=== PATIENT | female | born 1975 | race Caucasian/White ===

== ENCOUNTER 2016-07-02 18:52 | Emergency (ER) ==
[2016-07-02 19:04] VITALS: BP 147/106; TEMP 97.6; BMI 33.6
[2016-07-02] MEDS ORDERED: NORCO 7.5-325 PO STA (19:21)
[2016-07-02] MEDS ORDERED: BENADRYL PO STA (19:22)
--- NOTE | 2016-07-02 19:25 | ED.PDOC ---
General ED Provider: Dr. DIANA JOHNSON-ER Chief Complaint: Fall Stated Complaint: i fell on my elbow --it still hurts Time Seen by Physician: 19:00 Mode of Arrival: Walk-In Information Source: Patient, Family Exam Limitations: No limitations Primary Care Provider: CHELSIE HENSLEY Nursing and Triage Documentation Reviewed and Agree: Yes Musculoskeletal Complaint Exam - Elbow Pain Complaint/Exam Mechanism of Injury: Reports: Trauma Onset/Duration: 12hrsd Symptoms Are: Still present Onset of Pain: Reports: Immediate Initial Severity: Mild Current Severity: Moderate Location: Reports: Discrete Character: Reports: Dull, Aching Alleviating: Reports: None Aggravating: Reports: Movement, Twisting, Pulling Associated Signs and Symptoms: Denies: Swelling, Redness, Bruising, Fever, Weakness, Numbness, Tingling Related Surgical History: Reports: None Tenderness: Present: Medial Condyle Limited Range of Motion: Present: Flexion, Extension, Pronation, Supination Differential Diagnoses: Closed Fracture, Sprain, Strain Review of Systems - Review Of Systems Constitutional: Reports: No symptoms Eyes: Reports: No symptoms Ears, Nose, Mouth, Throat: Reports: No symptoms Respiratory: Reports: No symptoms Cardiac: Reports: No symptoms GI: Reports: No symptoms : Reports: No symptoms Musculoskeletal: Reports: Joint pain, Muscle pain Skin: Reports: No symptoms Neurological: Reports: No symptoms Endocrine: Reports: No symptoms Hematologic/Lymphatic: Reports: No symptoms All Other Systems: Reviewed and Negative Past Medical History - Past Medical History Previously Healthy: No Endocrine: Reports: None Cardiovascular: Reports: None Respiratory: Reports: Other (sleep apnea) Hematological: Reports: None Gastrointestinal: Reports: None Genitourinary: Reports: None Neuro/Psych: Reports: None Musculoskeletal: Reports: Arthritis, Back Pain Cancer: Reports: None Last Menstrual Period: 2009 PT HAS HAD A HYSTERCTOMY - Surgical History General Surgical History: Reports: Hysterectomy, Cholecystectomy - Family History Family History: Reports: None - Social History Smoking Status: Never smoker Hx Substance Use: No Alcohol Screening: Occasionally - Immunizations Tetanus Shot up to Date: No Physical Exam - Physical Exam Appearance: Well-appearing, No pain distress, Well-nourished Pain Distress: Moderate Eyes: AUBREY, EOMI, Conjunctiva clear ENT: Ears normal, Nose normal, Oropharynx normal Neck: Supple Respiratory: Airway patent, Breath sounds clear, Breath sounds equal, Respirations nonlabored Cardiovascular: RRR, Pulses normal, No rub, No murmur GI/: Soft, Nontender, No masses, Bowel sounds normal, No Organomegaly Musculoskeletal: Limited ROM Skin: Warm, Dry, Normal color Neurological: Sensation intact, Motor intact, Reflexes intact, Cranial nerves intact, Alert, Oriented Psychiatric: Affect appropriate, Mood appropriate Interpretation - Radiology Interpretation Radiology Interpretation By: ED Physician Radiology Results: Negative Procedures - Splinting Location: elbow right Pre-Made Type: Metal Splint: Gutter splint Pre-Proc Neuro Vasc Exam: Normal Post-Proc Neuro Vasc Exam: Normal Critical Care Note - Critical Care Note Total Time (mins): 0 Course - Course Orders, Labs, Meds: Orders Category Date Time Status Splint [ED SPLINT APPLICATION] .ONCE EMERGENCY 07/02/16 19:21 Active Diphenhydramine HCl [Benadryl] MEDS 07/02/16 19:22 Discontinued 25 mg PO ONCE STA Hydrocodone Bit/Acetaminophen [[place] 7.5-325] MEDS 07/02/16 19:21 Discontinued 1 tab PO ONCE STA ELBOW, RIGHT MIN 3 VIEWS Stat RADS 07/02/16 19:05 Taken Medications Discontinued Medications Generic Name Dose Route Start Last Admin Trade Name Freq PRN Reason Stop Dose Admin Acetaminophen/Hydrocodone Bitart 1 tab 07/02/16 19:21 [place] 7.5-325 PO 07/02/16 19:22 ONCE STA Diphenhydramine HCl 25 mg 07/02/16 19:22 Benadryl PO 07/02/16 19:23 ONCE STA Vital Signs: Temp Pulse Resp BP Pulse Ox 07/02/16 18:53 97.6 F 97 H 18 147/106 H 98 Departure - Departure Time of Disposition: 19:25 Disposition: HOME SELF-CARE Discharge Problem: Elbow pain Qualifiers: Laterality: right Qualifier Code: (M25.521) Pain in right elbow Instructions: Elbow Sprain (ED) Condition: Good Pt referred to PMD for follow-up: Yes Additional Instructions: stay in splint==norco 5mg q 4hrs prn pain #12--f/u wtih dr hensley--consider ortho referral or walk in ortho clinic Allergies/Adverse Reactions: Allergies morphine Allergy (Unknown, Verified 07/02/16 18:58) Hives amoxicillin trihydrate [From Augmentin] Adverse Reaction (Verified 07/02/16 18: 58) potassium clavulanate [From Augmentin] Adverse Reaction (Verified 07/02/16 18:58 ) Home Medications: Ambulatory Orders Buspirone HCl 15 mg PO BID 07/07/13 Clonazepam 0.5 mg PO QID 07/07/13 Biotin [Berny Biotin] 10,000 mcg PO DAILY 10/19/13 Pregabalin [Lyrica] 300 mg PO BID 10/19/13 Ca Cmb No.1/Vit D3/B-6/FA/B12 [Vitamin D3 1,000 Unit Tablet] 1 each PO DAILY Multivitamin 1 cap PO DAILY 04/05/14 Quetiapine Fumarate [Seroquel] 200 mg PO DAILY 09/06/14 Meloxicam 15 mg PO DAILY 03/29/16 Methocarbamol [Robaxin] 500 mg PO TID PRN 03/29/16 Sumatriptan Succinate [Imitrex] 25 mg PO DIRECTED PRN 03/29/16 Prazosin HCl 1 mg PO BEDTIME 07/02/16 Disposition Discussed With: Patient, Family
--- NOTE | 2016-07-03 01:36 | DI ---
Exam: Right elbow three views HISTORY: Elbow injury and pain Findings / impression: No significant bony or articular abnormality. Negative exam.
== END 2016-07-02 20:02 | disposition home or self-care (01) ==
LOC: ED 18:52
DX: M25.521 Pain in right elbow (principal); W19.XXXA Unspecified fall, initial encounter
CPT/HCPCS: 99283

== ENCOUNTER 2016-07-10 13:38 | Outpatient (CLI) ==
--- NOTE | 2016-07-11 08:28 | MRI ---
EXAM: MRI of the right elbow without contrast COMPARISON: Right elbow radiographs 07/02/2016. HISTORY: Elbow injury with pain. TECHNIQUE: Multiplanar noncontrast MR images of the right elbow were acquired using a 1.2 Ligia mag net. The patient was unable to fully extend the arm for imaging. Numerous sequences were repeated due to patient motion artifact and the technologist performing the study notes the best possible octavio lity images were obtained given the patient's condition. FINDINGS: There is no evidence of an acute fracture, osteomyelitis or a focal marrow lesion. Joint spaces are preserved. Moderate sized joint effusion with mild synovial thickening, nonspecific. N o definite osteochondral body. There is subcutaneous edema most pronounced posteriorly and medially without a focal soft tissue ulc er or drainable subcutaneous fluid collection. There is moderate common extensor tendinosis with pa rtial tearing of the deep insertional fibers at the lateral epicondyle attachment without a full-thi ckness tear. There is thinning of the underlying radial collateral ligament related to at least a p artial tear though a full-thickness tear cannot be excluded on this non arthrographic study. T2 hyperintense signal along the ulnar collateral ligament with thinning ligament fibers related to a sprain/partial tear without a definite full-thickness tear on this non arthrographic study. Commo n flexor tendon is intact in its medial epicondyle attachment. The ulnar nerve is noted within the cubital tunnel and is grossly unremarkable. The distal triceps, biceps and brachialis tendons are intact without a full-thickness tendon tear. IMPRESSION: 1. No acute osseous injury. 2. Moderate joint effusion with synovitis, nonspecific. Consider aspiration if clinically warrante d. 3. Lateral epicondylitis with tendinosis and partial tear of the common extensor tendon at its late ral epicondyle attachment. 4. Suspected tear of the radial collateral ligament with partial thickness and possible full-thickn ess components. Sprain/partial tear of the ulnar collateral ligament. MR arthrography could be con sidered if clinically warranted. 5. Subcutaneous edema posteriorly and medially without a drainable fluid collection.
== END 2016-07-10 13:39 | disposition home or self-care (01) ==
LOC: RAD 13:38
PROVIDERS: ATTEND Family Medicine
DX: M25.521 Pain in right elbow (principal)

== ENCOUNTER 2016-08-12 22:31 | Emergency (ER) ==
[2016-08-12 22:43] VITALS: BP 133/88; TEMP 98.5; BMI 33.7
[2016-08-12] MEDS ORDERED: DECADRON 4 MG/ML SDV IM STA (22:54)
[2016-08-12] MEDS ORDERED: DEMEROL 100 MG/ML SYRINGE IM STA (22:54)
[2016-08-12] MEDS ORDERED: NORFLEX IM STA (22:54)
--- NOTE | 2016-08-12 22:58 | ED.PDOC ---
General ED Provider: Dr. 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 no bladder function lost. sensations intact. Time Seen by Physician: 22:55 Mode of Arrival: Wheelchair Information Source: Patient Primary Care Provider: CHELSIE STOCK Nursing and Triage Documentation Reviewed and Agree: Yes Musculoskeletal Complaint Exam - Back Pain Complaint/Exam Mechanism of Injury: Reports: No known trauma Symptoms Are: Still present Timing: Constant Episodes Lasting: Days Initial Severity: Moderate Current Severity: Severe Location: Reports: Radiating Character: Reports: Aching, Throbbing Aggravating: Reports: Movements, Bending, Cough Alleviating: Reports: None Associated Signs and Symptoms: Reports: Pain with weight bearing. Denies: Swelling, Redness, Bruising, Fever, Weakness, Numbness, Tingling, Abdominal pain , Flank pain, Bladder incontinence, Bowel incontinence, Weight loss TAD Risk Factors: Reports: None AAA Risk Factors: Reports: None Cauda Equina Risk Factors: Reports: None Epidural Abcess Risk Factors: Reports: None Related Surgical History: Reports: None Focal Tenderness: Yes Paraspinal Muscle Tenderness: Yes Paraspinal Muscle Spasm: Yes Scoliosis: No Lordosis: No Kyphosis: No SLR Test: Left Positive Focal Weakness: Present: None Focal Sensory Loss: Present: None Gait: Present: Unable Differential Diagnoses: Herniated Disk, Strain, Sprain Review of Systems - Review Of Systems Constitutional: Reports: No symptoms Eyes: Reports: No symptoms Ears, Nose, Mouth, Throat: Reports: No symptoms Respiratory: Reports: No symptoms Cardiac: Reports: No symptoms GI: Reports: No symptoms : Reports: No symptoms Musculoskeletal: Reports: Back pain, Muscle stiffness Skin: Reports: No symptoms Neurological: Reports: No symptoms Endocrine: Reports: No symptoms Hematologic/Lymphatic: Reports: No symptoms All Other Systems: Reviewed and Negative Past Medical History - Past Medical History Previously Healthy: No Endocrine: Reports: None Cardiovascular: Reports: None Respiratory: Reports: Other (sleep apnea) Hematological: Reports: None Gastrointestinal: Reports: None Genitourinary: Reports: None Neuro/Psych: Reports: None Musculoskeletal: Reports: Arthritis, Back Pain Cancer: Reports: None Last Menstrual Period: PT HAS HAD A HYSTERECTOMY - Surgical History General Surgical History: Reports: Hysterectomy, Cholecystectomy - Family History Family History: Reports: None - Social History Smoking Status: Never smoker Hx Substance Use: No Alcohol Screening: None - Immunizations Tetanus Shot up to Date: Yes Physical Exam - Physical Exam Appearance: Obese Pain Distress: Moderate Eyes: AUBREY, EOMI, Conjunctiva clear ENT: Ears normal, Nose normal, Oropharynx normal Respiratory: Airway patent, Breath sounds clear, Breath sounds equal, Respirations nonlabored Cardiovascular: RRR, Pulses normal, No rub, No murmur GI/: Soft, Nontender, No masses, Bowel sounds normal, No Organomegaly Musculoskeletal: Normal strength, ROM intact, No edema, No calf tenderness Skin: Warm, Dry, Normal color Neurological: Sensation intact, Motor intact, Reflexes intact, Cranial nerves intact, Alert, Oriented Psychiatric: Affect appropriate, Mood appropriate Interpretation - Radiology Interpretation Radiology Interpretation By: Radiologist Radiology Results: Negative Exam Interpreted: CT Scan Critical Care Note - Critical Care Note Total Time (mins): 0 Course - Course Orders, Labs, Meds: Orders Category Date Time Status Dexamethasone 4 mg/ml Inj [Decadron 4 mg/ml Sdv] MEDS 08/12/16 22:54 Discontinued 4 mg IM ONCE STA Meperidine HCl/Pf [Demerol 100 mg/ml Syringe] MEDS 08/12/16 22:54 Discontinued 25 mg IM ONCE STA Orphenadrine Citrate [Norflex] MEDS 08/12/16 22:54 Discontinued 60 mg IM ONCE STA CT LUMBAR SPINE W/O CONTRAST Stat RADS 08/12/16 22:54 Completed Medications Discontinued Medications Generic Name Dose Route Start Last Admin Trade Name Freq PRN Reason Stop Dose Admin Dexamethasone Sodium Phosphate 4 mg 08/12/16 22:54 Decadron 4 Mg/Ml Sdv IM 08/12/16 22:55 ONCE STA Meperidine HCl 25 mg 08/12/16 22:54 Demerol 100 Mg/Ml Syringe IM 08/12/16 22:55 ONCE STA Orphenadrine Citrate 60 mg 08/12/16 22:54 Norflex IM 08/12/16 22:55 ONCE STA Vital Signs: Temp Pulse Resp BP Pulse Ox 08/12/16 22:33 98.5 F 86 20 133/88 100 Departure - Departure Time of Disposition: 23:35 Disposition: HOME SELF-CARE Discharge Problem: Lumbar back pain Qualifiers: Chronicity: acute Back pain laterality: bilateral Sciatica presence: with sciatica Sciatica laterality: sciatica of left side Qualifier Code: (M54.42) Lumbago with sciatica, left side Instructions: Lumbar Radiculopathy (ED) Condition: Stable Pt referred to PMD for follow-up: Yes Additional Instructions: hot pack, rest gradual exercise if not better needs MRI Prescriptions: Hydrocodone Bit/Acetaminophen [[place] 7.5-325] 1 each PO Q8H #14 tablet Allergies/Adverse Reactions: Allergies morphine Allergy (Unknown, Verified 08/12/16 22:43) Hives amoxicillin trihydrate [From Augmentin] Adverse Reaction (Verified 08/12/16 22: 43) potassium clavulanate [From Augmentin] Adverse Reaction (Verified 08/12/16 22:43 ) Home Medications: Ambulatory Orders Buspirone HCl 15 mg PO BID 07/07/13 Biotin [Berny Biotin] 10,000 mcg PO DAILY 10/19/13 Pregabalin [Lyrica] 300 mg PO BID 10/19/13 Ca Cmb No.1/Vit D3/B-6/FA/B12 [Vitamin D3 1,000 Unit Tablet] 1 each PO DAILY Multivitamin 1 cap PO DAILY 04/05/14 Quetiapine Fumarate [Seroquel] 400 mg PO DAILY 09/06/14 Meloxicam 15 mg PO DAILY 03/29/16 Methocarbamol [Robaxin] 500 mg PO TID PRN 03/29/16 Sumatriptan Succinate [Imitrex] 25 mg PO DIRECTED PRN 03/29/16 Prazosin HCl 1 mg PO BEDTIME 07/02/16 Fluoxetine HCl [Prozac] 20 mg PO DAILY 08/12/16 Hydrocodone Bit/Acetaminophen [[place] 7.5-325] 1 each PO Q8H #14 tablet 08/12/16 [place] Carbonate 300 mg PO DAILY 08/12/16 Disposition Discussed With: Patient
--- NOTE | 2016-08-12 23:25 | CT ---
EXAM: CT lumbar spine without intravenous contrast 08/12/2016. Sagittal and coronal reformatted im ages obtained HISTORY: Lumbar radiculopathy COMPARISON: 03/29/2016 FINDINGS: Normal lumbar lordosis is maintained. Vertebral bodies appear intact without evidence of fracture. The facet joints align normally. The spinal canal appears widely patent at T12-L3. Small posterior disc bulge flattens the thecal sa c at L3-L4, L4-L5 and L5-S1. The neural foramen appear patent. IMPRESSION: Mild degenerative disc disease. No definitive spinal or neural foraminal stenosis. No acute osseous abnormality.
== END 2016-08-13 00:11 | disposition home or self-care (01) ==
LOC: ED 22:31
DX: M54.42 Lumbago with sciatica, left side (principal)
CPT/HCPCS: 96372; 99282

== ENCOUNTER 2016-08-17 09:07 | Outpatient (CLI) ==
--- NOTE | 2016-08-17 10:33 | MRI ---
EXAM: MRI lumbar spine without IV contrast. DATE: 08/17/2016. HISTORY: Lumbar back pain radiating into the left lower extremity. TECHNIQUE: Sagittal and axial T1W and T2W sequences of the lumbar spine along with sagittal IR and coronal T2W sequences were obtained using 1.2 Ligia magnet. No IV contrast. COMPARISON: MRI L-spine 07/15/2013. CT L-spine 08/12/2016. FINDINGS: There are five [id number] lumbar vertebra. Mild hyperlordosis of the lumbar spine i s evident at L5-S1. Minor leftward curvature of the lumbar spine is present with the apex of curvat ure at L4-5. A 2.8 mm anterolisthesis of L5 relative to L4 is observed. No other subluxation, acute fracture, osseous malignancy, or pars interarticularis defect is demonstrated. Lumbar vertebrae no rmal in height. Chronic, small Schmorl's node is detected at the T11 superior endplate. There is d isc desiccation at L3-4, L4-5, and L5-S1. No sacral fracture or stress reaction is evident. Conus m edullaris terminates at L1-2. Visible spinal cord is normal. No retroperitoneal lymphadenopathy, paraspinal mass, or aortic aneurysm is detected. Paraspinal mus culature is symmetric bilaterally. Visible portions of the liver, spleen, adrenal glands and kidney s are normal. No bowel obstruction or neoplasm is identified. Segmental analysis: T12-L1: Normal. L1-2: Normal L2-3: Normal. L3-4: Minimal posterior to left foraminal disc bulge does not cause significant foraminal stenosis or central canal stenosis. L4-5: Minor anterior subluxation of L5, minor concentric disc bulge, posterior midline disc protrus ion (2.8 mm AP x 10 mm transverse) and minor facet disease cause slight narrowing at the opening to each foramen. No central canal stenosis. L5-S1: Minor posterior disc bulge does not cause S1 nerve root compression, central stenosis or for aminal stenosis. IMPRESSIONS: 1. Lumbar spine minimal DDD, minor subluxation of L4-5, and minor facet disease. 2. Minor bilateral foraminal encroachment at L4-5. No nerve compression. 3. No lumbar spine central canal stenosis.
== END 2016-08-17 09:08 | disposition home or self-care (01) ==
LOC: RAD 09:07
PROVIDERS: ATTEND Family Medicine
DX: M54.9 Dorsalgia, unspecified (principal)

== ENCOUNTER 2017-07-10 20:38 | Emergency (ER) ==
[2017-07-10 20:41] VITALS: BP 138/97; TEMP 97.3
[2017-07-10 20:45] VITALS: BMI 33.5
[2017-07-10] MEDS ORDERED: TORADOL IM STA (20:46)
--- NOTE | 2017-07-10 20:54 | ED.PDOC ---
General ED Provider: Dr. MARIZA MONGE Chief Complaint: Hip Pain/Injury Stated Complaint: Been having left hip pain for couple days, gradually getting worse, and today hurts to walk and stand Time Seen by Physician: 20:52 Mode of Arrival: Walk-In Information Source: Patient Primary Care Provider: CHELSIE STOCK Nursing and Triage Documentation Reviewed and Agree: Yes Reviewed sepsis parameters & appropriate labs ordered?: No System Inflammatory Response Syndrome: Not Applicable Sepsis Protocol: For patient's 13 years and over: Temp is 96.8 and below OR 101 and greater Pulse >90 BPM Resp >20/minute Acutely Altered Mental Status Are patient's symptoms suggestive of a new infection, such as: -Pneumonia -Skin, Soft Tissue -Endocarditis -UTI -Bone, Joint Infection -Implantable Device -Acute Abdominal Infection -Wound Infection -Meningitis -Blood Stream Catheter Infection -Unknown Musculoskeletal Complaint Exam - Hip/Pelvis Complaint/Exam Location of Pain: Reports: Left Mechanism of Injury: Reports: No known trauma Symptoms Are: Still present Initial Severity: Moderate Current Severity: Moderate Location: Reports: Discrete Character: Reports: Aching, Throbbing Aggravating: Reports: Movement, Weight bearing Alleviating: Reports: None Associated Signs and Symptoms: Denies: Swelling, Redness, Bruising, Fever, Weakness, Dizziness, Syncope, Abdominal pain, Knee pain Able to Bear Weight: No Septic Arthritis Risk Factors: Reports: None Related Surgical History: Reports: None Pelvis Palpation: Stable Tenderness: Present: Left Range of Motion Limited In: Present: Flexion, Extension Differential Diagnoses: Fracture, Sprain Review of Systems - Review Of Systems Constitutional: Reports: No symptoms Eyes: Reports: No symptoms Ears, Nose, Mouth, Throat: Reports: No symptoms Respiratory: Reports: No symptoms Cardiac: Reports: No symptoms GI: Reports: No symptoms : Reports: No symptoms Musculoskeletal: Reports: No symptoms Skin: Reports: No symptoms Neurological: Reports: No symptoms Endocrine: Reports: No symptoms Hematologic/Lymphatic: Reports: No symptoms All Other Systems: Reviewed and Negative Past Medical History - Past Medical History Previously Healthy: No Endocrine: Reports: None Cardiovascular: Reports: None Respiratory: Reports: Other (sleep apnea) Hematological: Reports: None Gastrointestinal: Reports: None Genitourinary: Reports: None Neuro/Psych: Reports: None Musculoskeletal: Reports: Arthritis, Back Pain Cancer: Reports: None Last Menstrual Period: n/a - Surgical History General Surgical History: Reports: Hysterectomy, Cholecystectomy - Family History Family History: Reports: None - Social History Smoking Status: Never smoker Hx Substance Use: No Alcohol Screening: None Physical Exam - Physical Exam Appearance: Ill-appearing Pain Distress: Moderate Eyes: AUBREY, EOMI, Conjunctiva clear ENT: Ears normal, Nose normal, Oropharynx normal Respiratory: Airway patent, Breath sounds clear, Breath sounds equal, Respirations nonlabored Cardiovascular: RRR, Pulses normal, No rub, No murmur GI/: Soft, Nontender, No masses, Bowel sounds normal, No Organomegaly Musculoskeletal: No edema, No calf tenderness, Limited ROM, Limited strength Skin: Warm, Dry, Normal color Neurological: Sensation intact, Motor intact, Reflexes intact, Cranial nerves intact, Alert, Oriented Psychiatric: Affect appropriate, Mood appropriate Interpretation - Radiology Interpretation Radiology Interpretation By: ED Physician Radiology Results: Negative Critical Care Note - Critical Care Note Total Time (mins): 25 Course - Course Orders, Labs, Meds: Orders Category Date Time Status Ketorolac Tromethamine [Toradol] MEDS 07/10/17 20:46 Stat 30 mg IM ONCE STA HIP, LEFT 2 VIEWS Stat RADS 07/10/17 20:46 Ordered Medications Discontinued Medications Generic Name Dose Route Start Last Admin Trade Name Freq PRN Reason Stop Dose Admin Ketorolac Tromethamine 30 mg 07/10/17 20:46 Toradol IM 07/10/17 20:47 ONCE STA Vital Signs: Temp Pulse Resp BP Pulse Ox 07/10/17 20:39 97.3 F L 74 16 138/97 H 99 Departure - Departure Time of Disposition: 20:56 Disposition: HOME SELF-CARE Discharge Problem: Sprain of left hip Qualifiers: Encounter type: initial encounter Qualified Code(s): S73.102A - Unspecified sprain of left hip, initial encounter Instructions: Hip Sprain (ED) Condition: Stable Pt referred to PMD for follow-up: Yes IPMP verified?: Yes Additional Instructions: rest hot pack if not better may need MRI Prescriptions: Oxycodone HCl/Acetaminophen [Percocet 5-325 mg Tablet] 1 tab PO TID PRN #7 tablet PRN Reason: PAIN Prednisone 10 mg PO BIDWM #14 tablet Allergies/Adverse Reactions: Allergies morphine Allergy (Unknown, Verified 07/10/17 20:41) Hives amoxicillin trihydrate [From Augmentin] Adverse Reaction (Verified 07/10/17 20: 41) potassium clavulanate [From Augmentin] Adverse Reaction (Verified 07/10/17 20:41 ) Home Medications: Ambulatory Orders Buspirone HCl 15 mg PO BID 07/07/13 Biotin [Berny Biotin] 10,000 mcg PO DAILY 10/19/13 Pregabalin [Lyrica] 300 mg PO BID 10/19/13 Ca Cmb No.1/Vit D3/B-6/FA/B12 [Vitamin D3 1,000 Unit Tablet] 1 each PO DAILY Multivitamin 1 cap PO DAILY 04/05/14 Quetiapine Fumarate [Seroquel] 400 mg PO DAILY 09/06/14 Methocarbamol [Robaxin] 500 mg PO TID PRN 03/29/16 Sumatriptan Succinate [Imitrex] 25 mg PO DIRECTED PRN 03/29/16 Prazosin HCl 1 mg PO BEDTIME 07/02/16 Fluoxetine HCl [Prozac] 20 mg PO DAILY 08/12/16 [place] Carbonate 300 mg PO DAILY 08/12/16 Oxycodone HCl/Acetaminophen [Percocet 5-325 mg Tablet] 1 tab PO TID PRN #7 tablet 07/10/17 Prednisone 10 mg PO BIDWM #14 tablet 07/10/17 Disposition Discussed With: Patient
--- NOTE | 2017-07-10 21:08 | DI ---
Exam: Two x-rays of the left hip. Comparison: None available. Reason for exam: Pain. FINDINGS: No acute fracture or malalignment. The left femoral head articulates with the acetabulum. Mild degenerative disease is seen with osteophyte formation. No unexplained calcific soft tissue d ensity or radiopaque retained foreign body. Metallic density overlying the pelvis is presumably in t he patient's soft tissues. Impression: No acute fracture or dislocation in the left hip.
== END 2017-07-10 21:32 | disposition home or self-care (01) ==
LOC: ED 20:38
DX: S73.102A Unspecified sprain of left hip, initial encounter (principal); X50.1XXA Overexertion from prolonged static or awkward postures, initial encounter
CPT/HCPCS: 96372; 99282